=== PATIENT | male | born 1990 | race Caucasian/White ===

== ENCOUNTER 2017-02-13 11:44 | Emergency (ER) | payer SELFPAY ==
[~2017-02-13] VITALS: Ht 175.3 cm; Wt 70.0 kg
[2017-02-13 11:46] VITALS: BP 133/77
== END 2017-02-13 12:59 | disposition left against medical advice (07) ==
LOC: ER 12:45
DX: F10.129 Alcohol abuse with intoxication, unspecified (principal); R19.7 Diarrhea, unspecified; R11.2 Nausea with vomiting, unspecified; Z59.0 Homelessness
CPT/HCPCS: 99283